=== PATIENT | male | born 1955 | race American Indian/Alaskan Native ===

== ENCOUNTER 2020-01-14 07:05 | Day surgery (SDC) | payer MEDICARE ==
[2020-01-09 11:40] LABS: BASOPHILS # (AUTO) 0.1 X10'3 (0-0.2); EOSINOPHILS # (AUTO) 0.1 X10'3 (0-0.9); EOSINOPHILS % (AUTO) 0.8 % (0-6); LYMPHOCYTES # (AUTO) 3.8 X10'3 (1.1-4.8); LYMPHOCYTES % (AUTO) 43.6 % (21-51); MEAN CORPUSCULAR HEMOGLOBIN 33.4 PG (27.0-31.0); MEAN CORPUSCULAR HGB CONC 33.9 g/dL (33.0-36.5); MEAN CORPUSCULAR VOLUME 98.4 FL (78-98); MEAN PLATELET VOLUME 8.4 FL (7.4-10.4); MONOCYTES # (AUTO) 0.7 X10'3 (0-0.9); MONOCYTES % (AUTO) 8.1 % (2-12); NEUTROPHILS # (AUTO) 4.1 X10'3 (1.8-7.7); NEUTROPHILS % (AUTO) 46.5 % (42-75); PRE OP HEMATOCRIT 45.2 % (42.0-52.0); PRE OP HEMOGLOBIN 15.3 g/dL (14.0-17.9); PRE OP PLATELET COUNT 185 X10'3 (140-440); RED CELL DISTRIBUTION WIDTH 14.1 % (11.5-14.5)
[2020-01-09 11:49] LABS: ALBUMIN 3.8 G/DL (3.4-5.0); ALBUMIN/GLOBULIN RATIO 1.1 (1.1-1.5); ALKALINE PHOSPHATASE 87 IU/L (46-116); BLOOD UREA NITROGEN 15 MG/DL (7-18); BUN/CREATININE RATIO 15.2 (5.4-32.0); CALCIUM 8.7 MG/DL (8.5-10.1); CHLORIDE 107 MMOL/L (99-107); CREATININE 0.99 MG/DL (0.60-1.10); PRE OP ALT 39 U/L (30-65); PRE OP ANION GAP 8 (8-16); PRE OP AST 20 U/L (10-37); PRE OP BILIRUB, TOTAL 0.3 MG/DL (0.0-1.0); PRE OP GLUCOSE 92 MG/DL (70-104); PRE OP POTASSIUM 4.2 MMOL/L (3.4-5.1); PRE OP SODIUM 142 MMOL/L (135-145); TOTAL CARBON DIOXIDE 26.8 MMOL/L (24-32); TOTAL PROTEIN 7.4 G/DL (6.4-8.2); eGFR 76 ML/MIN
[2020-01-14] VITALS (13 sets, daily range): BP systolic 139–178; BP diastolic 71–97
[~2020-01-14] VITALS: Ht 170.2 cm; Wt 81.0 kg
[~2020-01-14 07:05] MED LIST: ATOR40TA PO; FOLI-43 PO; INFL100V; METH2.5T PO; SULF500T46 PO; ceFAZolin 2gm in dextrose, iso 50 ML IV ONE; famotidine 20mg tablet PO ONE; ringers solution, lacted 1,000 ML IV SCH
[2020-01-14] MEDS ORDERED: BUPIVAcaine/PF 2.5 mg/ml (0.25%) 30ml vial ONE (08:02)
[2020-01-14] MEDS ORDERED: ceFAZolin 1000mg inj ONE (08:05)
[2020-01-14] MEDS ORDERED: rocuronium 10mg/ml inj IV ONE (09:31)
[2020-01-14] MEDS ORDERED: propofol inj 20 ML IV ONE (09:32)
[2020-01-14] MEDS ORDERED: LIDOcaine 2% (20mg/ml) 5ml vial ONE (09:32)
[2020-01-14] MEDS ORDERED: ondansetron/PF 4mg/2ml inj ONE (09:32)
[2020-01-14] MEDS ORDERED: ringers solution, lacted 1,000 ML IV SCH (09:37)
[2020-01-14] MEDS ORDERED: hydrALAZINE 20mg/ml inj. IV PRN (09:40)
[2020-01-14] MEDS ORDERED: fentaNYL/PF 50MCG/1 ML 2ML syringe IV PRN (09:40)
[2020-01-14] MEDS ORDERED: HYDROmorphone inj. 0.5 MG/0.5 ML DISP.SYRIN IV PRN ×2 (09:40)
[2020-01-14] MEDS ORDERED: labetalol 20mg/4ml (5mg/ml) syringe IV PRN (09:40)
[2020-01-14] MEDS ORDERED: ondansetron/PF 4mg/2ml inj IV PRN (09:40)
[2020-01-14] MEDS ORDERED: glycopyrrolate 0.2mg/ml inj ONE (09:42)
[2020-01-14] MEDS ORDERED: sevoflurane 250ml liquid IH ONE (09:42)
[2020-01-14] MEDS ORDERED: neostigmine methylsulfate 1 MG/ML 10ml vial ONE (09:42)
[2020-01-14] MEDS ORDERED: fentaNYL/PF 50MCG/1 ML 2ML syringe ONE ×2 (09:43→10:06)
[2020-01-14] MEDS ORDERED: midazolam 2 mg/2 ml injection ONE (09:44)
[2020-01-14] MEDS ORDERED: dexamethasone sod phosphate 4mg/ml inj. ONE (10:58)
[2020-01-14] MEDS ORDERED: BUPIVAcaine/PF 2.5mg/ml (0.25%) 10ml vial ONE (11:07)
[2020-01-14] MEDS ORDERED: BUPIVACAINE liposomal/PF 13.3 MG/ML vial IM ONE (11:08)
[2020-01-14] MEDS ORDERED: ePHEDrine 50MG/ML INJ. ONE (11:14)
--- NOTE | 2020-01-14 11:40 | NUR ---
Received from OR via BED , accompanied by Anesthesiologist DR GODINEZ and report given by Anesthesiolgist. PATIENT WAKING UP, DENIES PAIN, V/S WNL, NEUROVASCULAR CHECKS INTACT, 20G PIV LUE, SCD ON, 4 BANDAIDS TO LAP SIGHTS OF ABDOMEN CDI.
[2020-01-14] MEDS: fentaNYL/PF 50MCG/1 ML 2ML syringe IV PRN ×2 (12:45→12:52)
--- NOTE | 2020-01-14 13:30 | NUR ---
PATIENT A&OX4, DENIES PAIN, V/S WNL, NEUROVASCULAR CHECKS INTACT, 20G PIV LUE D/C, SCD OFF, 4 BANDAIDS TO LAP SIGHTS OF ABDOMEN CDI.. I HAVE REVIEWED D/C INSTRUCTIONS WITH PATIENT AND FAMILY HAVE VERBALIZED UNDERSTANDING.PATIENT WAS D/C HOME WITH ALL BELONGINGS AND FAMILY GAVE TRANSPORT HOME.
== END 2020-01-14 13:30 | disposition home or self-care (01) ==
LOC: PAS 07:05
PROVIDERS: ATTEND Surgery
DX: K43.2 Incisional hernia without obstruction or gangrene (principal); K66.0 Peritoneal adhesions (postprocedural) (postinfection); M06.9 Rheumatoid arthritis, unspecified; E05.00 Thyrotoxicosis with diffuse goiter without thyrotoxic crisis or storm; I10 Essential (primary) hypertension; F17.210 Nicotine dependence, cigarettes, uncomplicated; Z79.82 Long term (current) use of aspirin; Z79.899 Other long term (current) drug therapy; Z98.890 Other specified postprocedural states; Z88.5 Allergy status to narcotic agent; Z98.52 Vasectomy status; Z11.59 Encounter for screening for other viral diseases
CPT/HCPCS: 36415; 49654; 64488; 80053; 82948; 85025; 87635; 93005; C1758; C1781; C9290; J0690; J1100; J2001; J2250; J2405; J2704; J2710; J3010; J3490; J7120; A4215; A4618; A7000